=== PATIENT | male | born 1955 | race Caucasian/White ===

== ENCOUNTER 2018-11-30 07:03 | Inpatient (IN) | payer OTHER ==
[2018-11-30] VITALS (12 sets, daily range): BP systolic 108–137; BP diastolic 63–77
[~2018-11-30] VITALS: Ht 180.3 cm; Wt 64.9 kg
[~2018-11-30 07:03] MED LIST: NKM; ceFAZolin sod 1 GM in NS 55 ML IVPB ONE
[2018-11-30] MEDS ORDERED: Thrombin 5000 units TOPIC ONE ×2 (07:10→09:58)
[2018-11-30] MEDS ORDERED: Bupivacaine w/Epi 0.5% 30ml Vial INJ ONE ×2 (07:10→09:59)
[2018-11-30] MEDS ORDERED: Bacitracin 50000 Units Vial ONE (07:10)
[2018-11-30] MEDS ORDERED: Gelfoam Size TOPIC ONE ×2 (07:10→09:59)
[2018-11-30] MEDS ORDERED: LR 1000ml ONE (08:30)
[2018-11-30] MEDS ORDERED: Lidocaine 1% MPF 10mg/ml 5ml ONE (08:41)
[2018-11-30] MEDS ORDERED: Morphine Sulfate 10mg/ml Inj ONE (08:41)
[2018-11-30] MEDS ORDERED: Propofol 200mg/20ml IV ONE (08:41)
[2018-11-30] MEDS ORDERED: LR 1000ml 1,000 ML IVLG SCH (09:29)
--- NOTE | 2018-11-30 09:29 | Anethesia Preoperative Eval ---
Anesthesia Pre-op PMH/ROS General Date of Evaluation: Nov 30, 2018 Anesthesiologist: Morris ASA Score: ASA 1 Mallampati Score Class I : Soft palate, uvula, fauces, pillars visible Class II: Soft palate, uvula, fauces visible Class III: Soft palate, base of uvula visible Class IV: Only hard plate visible Mallampati Classification: Class II Surgeon: Richi Diagnosis: lumbar radiculopathy Surgical Procedure: bilateral L3-4 and right L4-5 laminectomy and discectomy Anesthesia History: none Family History: no anesthesia problems Allergies: Coded Allergies: No Known Allergies (Unverified , 11/30/18) Patient NPO?: Yes NPO Date: Nov 29, 2018 NPO Time: 2100 Past Medical History Cardiovascular: Denies: HTN, CAD, [place], valve dz, arrhythmia, other Pulmonary: Denies: asthma, COPD, CATALINA, other Gastrointestinal/Genitourinary: Denies: GERD, CRI, ESRD, other Neurologic/Psychiatric: Denies: dementia, CVA, depression/anxiety, TIA, other Endocrine: Denies: DM, hypothyroidism, steroids, other HEENT: Denies: cataract (L), cataract (R), glaucoma, [place] (L), [place] (R), other Hematology/Immune: Denies: anemia, DVT, bleeding disorder, other Musculoskeletal/Integumentary: Denies: OA, RA, DJD, DDD, edema, other PSxH Narrative: lumbar lami, nose sx Anesthesia Pre-op Phys. Exam Physician Exam Last Vital Signs Date Time Temp Pulse Resp B/P (MAP) Pulse Ox O2 Delivery O2 Flow Rate FiO2 11/30/18 07:44 Room Air 11/30/18 07:43 98.2 91 20 137/77 (97) 99 Constitutional: NAD Cardiovascular: RRR Respiratory: CTA Airway Exam Mallampati Score: Class I MO: full ROM: full Teeth: intact Anesthesia Pre-op A/P Labs see chart Studies Pre-op Studies: EKG - sr Risk Assessment & Plan Assessment: ASA I Plan: GA Status Change Before Surgery: No Pre-Antibiotics Drug: Ancef 2g Given Within 1 Hr of Incision: Yes Apple Maki MD Nov 30, 2018 09:29
[2018-11-30] MEDS ORDERED: Metoclopramide 10mg/2ml Inj IVP PRN ×2 (09:30→11:15)
[2018-11-30] MEDS ORDERED: LORazepam Inj 2mg/ml 1ml IV PRN (09:30)
[2018-11-30] MEDS ORDERED: DiphenhydrAMINE 50mg/ml Inj IVP PRN (09:30)
[2018-11-30] MEDS ORDERED: Hydromorphone 0.5mg/0.5ml inj IVP PRN (09:30)
[2018-11-30] MEDS ORDERED: Midazolam 2mg/2ml Inj IVP PRN (09:30)
[2018-11-30] MEDS ORDERED: fentaNYL 100 mcg/2 mL IV PRN (09:30)
[2018-11-30] MEDS ORDERED: Midazolam 2mg/2ml Inj ONE (09:32)
[2018-11-30] MEDS ORDERED: Bacitracin 50000 Units Vial IRRIG ONE (09:58)
[2018-11-30] MEDS ORDERED: NS Irrig 1000ml IRRIG ONE (09:58)
[2018-11-30] MEDS ORDERED: Vancomycin 1gm vial IVPB ONE ×2 (10:32→10:50)
[2018-11-30] MEDS ORDERED: fentaNYL 100 mcg/2 mL IV ONE (10:40)
[2018-11-30] MEDS ORDERED: Milk of Magnesia 30ml Ud ORAL PRN (11:15)
--- NOTE | 2018-11-30 11:17 | Brief Operative Note ---
Immediate Post Operative Note Operative Note Pre-op Diagnosis: l345 HNP Procedure: L34 B laminotomy, R l34 discectomy, R L45 laminotomy Post-op Diagnosis: same as pre-op Findings: consistent w/pre-op dx studies Surgeon: lizeth Vault Cashier: pradip anders Anesthesiologist: rubens Anesthesia: general Specimen: none Complications: none Condition: stable Fluids: 1200 Estimated Blood Loss: minimal Drains: hemovac Implant(s) used?: Jabari Auguste MD Nov 30, 2018 11:17
--- NOTE | 2018-11-30 11:18 | Pre-Procedure Note/Attestation ---
Pre-Procedure Note/Attestation Complete Prior to Procedure Procedure Narrative: L345 lami/discectomy Indications for Procedure Pre-Operative Diagnosis: l345 HNP Attestation I attest that I discussed the nature of the procedure; its benefits; risks and complications; and alternatives (and the risks and benefits of such alternatives ), prior to the procedure, with the patient (or the patient's legal textiles sales representative). I attest that, if there was a reasonable possibility of needing a blood transfusion, the patient (or the patient's legal textiles sales representative) was given the [facility] standardized written summary, pursuant to the [place] Blood Safety Act ([place] Health and Safety Code # 1645, as amended). I attest that I re-evaluated the patient just prior to the surgery and that there has been no change in the patient's H&P, except as documented below: Jabari Stoddard MD Nov 30, 2018 11:18
--- NOTE | 2018-11-30 11:36 | Immediate Post-Op Evaluation ---
Immediate Post-Op Evalulation Immediate Post-Op Evalulation Procedure: L3-4, L4-5 laminectomy and discectomy Date of Evaluation: Nov 30, 2018 Time of Evaluation: 11:37 IV Fluids: 1.2L Blood Products: 0 Estimated Blood Loss: 50 Urinary Output: 0 Blood Pressure Systolic: 108 Blood Pressure Diastolic: 63 Pulse Rate: 74 Respiratory Rate: 16 O2 Sat by Pulse Oximetry: 100 Temperature (Fahrenheit): 99.1 Pain Score (1-10): 0 Nausea: No Vomiting: No Complications 0 Patient Status: awake, reacts, patent, none Hydration Status: adequate Drug: Ancef 2g Given Within 1 Hr of Incision: Yes Time Given: 08:45 Apple Maki MD Nov 30, 2018 11:36
--- NOTE | 2018-11-30 13:02 | Diagnostic Imaging Report ---
Indication: Intraoperative imaging Comparison: None Findings: Single crosstable lateral view of the lumbar spine showing instrument posterior to L4-5. IMPRESSION: Intraoperative imaging
--- NOTE | 2018-11-30 15:00 | Operative Note - Dictated ---
DATE OF OPERATION: 11/30/2018 SURGEON: Jabari Stoddard M.D. PREOPERATIVE DIAGNOSES: 1. Status post prior lumbar laminectomy with extruded disk herniation L3-L4 large and central. 2. L4-L5 right-sided recurrent disc herniation. 3. Radiculopathy. PROCEDURES: 1. Redo laminectomy bilateral L3 and L4 as well as right side L4 and L5. 2. Diskectomy right-sided approach L3-L4. 3. Lysis of adhesions/neurolysis L4-L5 right side. 4. Dissection through altered and scarred anatomy. 5. Use of fluoroscopy for localization. 6. Use of operating microscope. ESTIMATED BLOOD LOSS: Less than 100. FLUIDS: 1200. COMPLICATIONS: None. INDICATIONS: The patient is a very pleasant gentleman who has previously undergone lumbar laminectomy, microdiskectomy. He re-injured his back with a large disk extrusion centrally little bit more towards the right than the left at L3-L4 resulting in severe stenosis acquired an acute as well as L4-L5 right-sided disc herniation. Pros, cons, risks, and benefits of surgery were discussed. Due to the exceedingly large nature of the disc herniation, surgical intervention was recommended. RISKS NOTE: The patient was explained in detail risks, benefits of surgery to include, but not be limited to those of bleeding, infection, damage to nerves, vessels, tendons, anesthetic reaction, aspiration, and possibly . The patient understood and wished to proceed. OPERATIVE PROCEDURE IN DETAIL: The patient was taken to the operative suite. After general endotracheal anesthesia was obtained, he was turned prone onto a radiolucent table/Jerome frame. The back was then prepped and draped in usual sterile fashion. The previous incision was marked out. At this point, the skin was infiltrated with Marcaine with epinephrine. Incision was made from L3 through L5 after needles were placed marking the appropriate levels. At this point, subperiosteal dissection was carried out. Extensive scar tissue was encountered and dissection through the altered and scarred anatomy was required. Leading edge of a lamina was identified and this was identified to be the L4 level. At this point, dissection was carried down more proximally. Care being taken to avoid injury to the facet joints bilaterally. Due to the large nature of disk herniation at L3-L4, it was elected to perform bilateral laminal foraminotomies so as to avoid nerve traction/compression injury when mobilizing the nerve for diskectomy from the right side. Therefore, a hemilaminectomy was performed under microscopic visualization removing the leading edge of the lamina of L3 and superior edge lamina of L4. Ligamentum flavum was removed in a piecemeal fashion. Medial facetectomy was performed. Neuroforamen was probed free. Copious irrigation was performed. FloSeal was applied. At this point, attention was turned to the right side. In an identical fashion, hemilaminectomy was performed at L3 and L4. The dural sac was then gently retracted medially. A large extruded fragment was felt below the posterior longitudinal ligament. The PLL was incised and was noted to be markedly hypertrophied due to chronic inflammatory change. Extruded disc fragments were then identified from a more central approach under the ligamentum flavum. A large probe was passed into the pocket where the disk extrusion was and any and all loose disk fragments were removed. Copious irrigation was performed. The PLL was bipolar so as to thin its hypertrophied profile. At this juncture, FloSeal was applied. Attention was turned to the L4-L5 level. In an identical fashion, hemilaminectomy was performed of the L3 and leading edge superior portion of L5. The nerve root was gently retracted medially. There was noted to be extensive scarring of the L4/L5 complex. This was retracted gently medially. Bipolar was used to thin out the disk extrusion and incision through the PLL was made and the loose disk fragments were evacuated. Bipolar micro scissors and micro rotund instruments were required to perform neurolysis at L4-L5. Copious irrigation was performed. Once satisfied with the decompression and the diskectomy, decision was made to close. Valsalva demonstrated no CSF leakage. At this point, the decision was made to close. Medium-sized Hemovac drain was placed deep to the fascia. Fascia was repaired using #1 Vicryl. Subcutaneous closure using 2-0 Vicryl. Dermabond and Tegaderm dressing was applied. The patient was then turned onto his back, awakened, extubated, and transferred to recovery room in stable condition. Complications none. Jabari Stoddard M.D. DR: MARIA R JOB#: [id number] CC:
[2018-11-30] MEDS: D5 1/2NS 1,000 ML IV SCH ×2 (15:36→23:56)
[2018-11-30] MEDS: Docusate 100mg cap ORAL SCH (17:04)
[2018-11-30] MEDS: ceFAZolin sod 1 GM in D5W 55 ML IV SCH ×2 (17:04→23:56)
[2018-11-30] MEDS ORDERED: Tamsulosin 0.4mg cap ORAL SCH (17:45)
[2018-11-30] MEDS ORDERED: Bethanechol 25mg Tab ORAL SCH (17:46)
[2018-11-30] MEDS ORDERED: Morphine Sulfate 4mg/ml Inj (IV/IM USE ONLY) IM PRN ×2 (18:30→19:00)
[2018-11-30] MEDS ORDERED: Chloraseptic Spray 20mL Bottle ORAL PRN (18:30)
[2018-11-30] MEDS ORDERED: Tylenol #3 tab (300mg/30mg) ORAL PRN (18:45)
--- NOTE | 2018-11-30 20:45 | Consultation ---
DATE OF CONSULTATION: 11/30/2018 CONSULTING PHYSICIAN: Niles Saunders M.D. REFERRING PHYSICIAN: Jabari Stoddard M.D. REASON FOR CONSULTATION: Acute pain consult. HISTORY OF PRESENT ILLNESS: Dear Dr. Jabari Stoddard, Thank you kindly for consulting me to evaluate and render an opinion as to how to proceed in the management of the patient's acute postoperative lumbar spine pain after his lumbar spine multiple level surgery today. The patient is a very pleasant 63-year-old gentleman, who injured his lumbar spine after a work-related injury. On your request, I saw the patient for acute pain consultation. I saw the patient at the bedside with the nurse RN, Onelia. I discussed the case with yourself, Dr. Stoddard, along with the recovery room nurse, GALLITO Strauss. I performed a detailed history and physical examination. I spent over 75 minutes in consultation with an additional 30 minutes in medical record review. Multiple records were reviewed including utilization review and surgical authorization by [facility] [email or web address] [facility] [employer]. Utilization reviewed dated 10/29/2018 authorizing multiple level lumbar spine surgery as certified with hospitalization at [facility]. Further record review include preoperative history and physical by Dr. Tyler Chavez on 11/23/2018 along with diagnostic testing, laboratory studies, 12-lead EKG, and chest x-ray. Further record review include primary treating physician's progress report by Dr. Jabari Stoddard on 10/13/2018. Multiple records were reviewed from today's date of surgery at [facility] dated 11/30/2018 including consent for surgical treatment, consent for anesthesia, consent for blood products, medication administration record, medication reconciliation order form, PACU record, PACU orders, anesthesia record, pre and post anesthesia evaluation record, postoperative spine surgery orders, postoperative surgery report by Dr. Jabari Stoddard, guidelines for prophylactic antibiotics, guidelines for DVT prophylaxis, surgical invasive procedure check list, 24-hour medical surgical flow sheet, initial nursing assessment, and output record. PAST MEDICAL HISTORY: 1. Acute postoperative lumbar spine pain, status post multiple level lumbar spine surgery by Dr. Jabari Stoddard in November 2018. 2. Work-related injury. 3. Postoperative urinary retention. PAST SURGICAL HISTORY: Previous lumbar spine surgery in 1990 and nasal polyp surgery in 1974. MEDICATIONS AT HOME: P.r.n. NSAIDs. ALLERGIES: No known drug allergies. FAMILY HISTORY: Longevity, both parents near 80 years old. SOCIAL HISTORY: The patient lives alone. He denies tobacco, marijuana, or alcohol usage. REVIEW OF SYSTEMS: Per Dr. Tyler Chavez. PHYSICAL EXAMINATION: GENERAL: Age 63, height 5 feet 11 inches, weight 147 pounds, and body mass index 21. In general, this is a 63-year-old gentleman, who appears younger than his stated age. Alert and oriented x3. Moving all extremities x4. A 5/5 dorsiflexion and 5/5 plantar flexion in bilateral lower extremities. VITAL SIGNS: Afebrile, pulse 81, respirations 20, blood pressure 123/68, and oxygen saturation 100% on room air. HEENT: Normocephalic and atraumatic. Extraocular muscles intact. Pupils are equal, round, and accommodative. No Rothman's palsy. No Melissa syndrome. No nuchal rigidity appreciated. No carotid bruits. CHEST: Clear to auscultation. HEART: Regular rate and rhythm. ABDOMEN: Soft. BACK: Lumbar spine with Hemovac drain holding suction. Painful by incision area with minimal paraspinal muscle spasms appreciated. NEUROLOGIC: Detailed neurologic exam and straight leg raising deferred to Dr. Jabari Stoddard, Surgery. LABORATORY STUDIES: Labs from 11/23/2018 shows glucose 114, sodium 142, potassium 4.0, chloride 104, bicarb 27, BUN 18, and creatinine 1.1. Calcium 9.5. Total protein 7.2. Albumin 4.5. AST 14, ALT 20, and alkaline phosphatase 73. Total bilirubin 2.0. Glycosylated hemoglobin normal. White count 5, hematocrit 48, and platelets 215,000. INR 1.1. PTT 31. Preoperative 12-lead EKG shows heart rate 76, premature ventricular contractions, normal sinus rhythm. Preoperative chest x-ray shows no acute cardiopulmonary disease. IMPRESSION: 1. Acute postoperative lumbar spine pain, status post multiple level lumbar spine surgery by Dr. Jabari Stoddard in November 2018. 2. Work-related injury. 3. Postoperative urinary retention. TREATMENT RECOMMENDATIONS: I have devised the following analgesic plan to help with this patient's pain control. I reviewed the anesthesia record. It shows that he did tolerate morphine without any adverse side effects, so I have added 3 mg intramuscular morphine every three hours p.r.n. for severe pain complaints. The patient is fairly narcotic-naive. He believes he has used codeine after dental procedures in the past. So, I have ordered Tylenol No. 3 With Codeine orally 1 tablet every 4 hours p.r.n. for mild pain. The patient does not appear to be anxious, so I would avoid the class of benzodiazepines at this time, and concentrate on MU-opioid agonist agents for primary analgesia. If spasm becomes a big issue, we would consider using muscle relaxants. The patient is having urinary retention problems. He believes he has had similar episodes in the past. I have contacted the pharmacy and emergently added doses of Flomax and Urecholine. We will see if these medications allow the patient to void urine with standing. Otherwise, I would recommend placing a Gallagher catheter to avoid further continuous ureteral irritation with multiple in and out straight catheterizations. Certainly, Dr. Stoddard will be notified as well if this urinary retention issue persists. In case of any sore throat complaints, I have ordered Chloraseptic spray to the bedside. I will empirically place the patient on Pepcid b.i.d. for GI ulcer prophylaxis and I have also ordered a p.r.n. dose of Mylanta 30 mL q.6 hours in case of any GERD symptom exacerbation. I have ordered two different antiemetics starting with Zofran 4 mg intravenously every four hours p.r.n. as a first-line agent with Phenergan 12.5 mg intramuscularly every 8 hours as a second-line agent. I have ordered Benadryl 25 mg orally every 6 hours in case of any itching complaints. I will defer DVT prophylaxis to the surgeon. I have ordered incentive spirometer to encourage good pulmonary toilet and help to reduce the risk of postoperative pneumonia and atelectasis. We will see how the patient advances with physical therapy tomorrow, and also monitor the drainage from his indwelling Hemovac drain. Niles Saunders M.D. DR: GAVIN JOB#: [id number] CC:
[2018-11-30] MEDS: Bethanechol 25mg Tab ORAL SCH (21:46)
[2018-12-01] VITALS: BP 113/62
[2018-12-01 04:00] VITALS: BP 95/65
[2018-12-01] MEDS: Bethanechol 25mg Tab ORAL SCH ×2 (05:46→14:14)
[2018-12-01 07:59] VITALS: BP 69/65
--- NOTE | 2018-12-01 08:32 | Orthopedic Spine Progress Note ---
Ortho Spine - Progress Note Subjective Symptoms: c/o post-op back pain, improved Objective Vital Signs: Last 24 Hour Vital Signs Date Time Temp Pulse Resp B/P (MAP) Pulse Ox O2 Delivery O2 Flow Rate FiO2 12/01/18 07:59 98.1 80 20 69/65 (66) 100 12/01/18 04:00 97.9 68 18 95/65 (75) 100 12/01/18 00:00 97.8 64 17 113/62 (79) 100 11/30/18 21:00 Room Air 11/30/18 20:00 98.1 75 18 123/63 (83) 100 11/30/18 16:00 98.9 81 20 123/68 (86) 100 11/30/18 14:35 Room Air 11/30/18 14:30 97.9 82 20 124/71 (88) 99 11/30/18 13:30 97.6 74 20 119/63 (81) 98 11/30/18 13:00 98.4 70 20 121/66 (84) 100 11/30/18 12:30 97.8 81 18 127/73 100 Nasal Cannula 3 11/30/18 12:15 79 15 112/72 100 Nasal Cannula 3 11/30/18 12:00 82 17 119/74 100 Nasal Cannula 3 11/30/18 11:50 76 15 114/71 100 Simple Mask 6 11/30/18 11:40 77 20 114/70 100 Simple Mask 6 11/30/18 11:36 74 16 100 11/30/18 11:32 99.0 74 16 108/63 100 Simple Mask 6 I&O: Intake and Output 11/30/18 12/01/18 19:00 07:00 Intake Total 936 ml 1620 ml Output Total 20 ml 1775 ml Balance 916 ml -155 ml Intake Oral 536 ml 420 ml IV Total 100 ml 1200 ml Other 300 ml Output Urine Total 1700 ml Drainage Total 10 ml 75 ml Estimated Blood Loss 10 ml # Voids 1 Wound: clean, intact Drains: hemovac Neuro Status: stable Assessment Procedure Performed: L34 B laminotomy, R l34 discectomy, R L45 laminotomy Plan Plan: PT, pain management, continue drain, discharge plan Jabari Stoddard MD Dec 01, 2018 08:32
[2018-12-01] MEDS: ceFAZolin sod 1 GM in D5W 55 ML IV SCH (09:05)
[2018-12-01] MEDS: D5 1/2NS 1,000 ML IV SCH (09:05)
[2018-12-01] MEDS: Docusate 100mg cap ORAL SCH ×2 (09:05→17:26)
[2018-12-01 12:00] VITALS: BP 124/66
[2018-12-01] MEDS ORDERED: D5 1/2NS 1000ml IV ONE (15:24)
[2018-12-01 16:00] VITALS: BP 115/67
[2018-12-01 20:00] VITALS: BP 144/71
[2018-12-01] MEDS ORDERED: Tamsulosin 0.4mg cap ORAL SCH (21:00)
--- NOTE | 2018-12-01 21:00 | Progress Note ---
DATE: 12/01/2018 ACUTE PAIN MANAGEMENT PHYSICIAN PROGRESS NOTE MEDICATIONS: Medication administration record reviewed. Medications include IV fluids, Colace, Flomax, Pepcid, urecholine, Restoril, Tylenol, milk of magnesia, Catapres, Benadryl, Mylanta, Phenergan, Zofran, Chloraseptic spray, morphine, and Tylenol No. 3 with Codeine. LABORATORY STUDIES: No interval laboratory studies. I saw the patient at bedside. I discussed the case with the surgeon, Dr. Jabari Stoddard along with the day nurse RN, Thea and the charge nurse, RN, Ariadne. The patient has been ambulating well. His Hemovac drain last night put out [address] Ware evaluated the patient earlier in the morning, the surgeon, Dr. Ware wants the patient to continue in the hospital to monitor further lumbar spine drain output. During today's day shift, there is output decreased to 20 mL. The patient has been voiding urine without any difficulties after the urecholine with Flomax yesterday. I will discontinue these medications. The patient has been moving in and out of bed with physical therapy training without difficulties. He has been tolerating advancing diet without any nausea symptoms. His current analgesic regimen seems adequate. I did leave a prescription for Tylenol No. 3 with Codeine for outpatient usage. The patient is alert and ordered x3. Denies any shortness of breath or chest pain. I had the patient move to the right lateral decubitus position, so that I could examine the lumbar spine dressing. I removed the surgical dressing, which revealed the incision line clean and dry with Durabond sealant intact. The drain site appeared clean and dry as well. There was no evidence for erythema or exudate. With the Hemovac drain taken off of suction, end-expiration, I personally removed the indwelling lumbar spine drain catheter. The tip was intact. Alcohol swabbing was applied generously to the drain hole site, along with alcohol swabbing over the incision line. A 6 x 6 island sterile border gauze dressings were then applied over the drain hole site and the incision line, without any complications. Niles Saunders M.D. DR: NANI JOB#: [id number] CC:
[2018-12-02] VITALS: BP 128/77
[2018-12-02 04:00] VITALS: BP 123/70
[2018-12-02 08:00] VITALS: BP 106/64
[2018-12-02] MEDS: Docusate 100mg cap ORAL SCH (08:18)
--- NOTE | 2018-12-02 08:35 | Orthopedic Spine Progress Note ---
Ortho Spine - Progress Note Subjective Symptoms: c/o post-op back pain, improved - as compared to pre-op Objective Vital Signs: Last 24 Hour Vital Signs Date Time Temp Pulse Resp B/P (MAP) Pulse Ox O2 Delivery O2 Flow Rate FiO2 12/02/18 04:00 97.7 70 20 123/70 (87) 100 12/02/18 00:00 97.2 77 20 128/77 (94) 100 12/01/18 21:00 Room Air 12/01/18 20:00 98.8 88 20 144/71 (95) 100 12/01/18 16:00 98.7 72 20 115/67 (83) 100 12/01/18 12:00 98.3 69 20 124/66 (85) 100 12/01/18 09:00 Room Air I&O: Intake and Output 12/01/18 12/02/18 19:00 07:00 Intake Total 720 ml Output Total 20 ml 700 ml Balance -20 ml 20 ml Intake Oral 720 ml Output Urine Total 700 ml Drainage Total 20 ml # Voids 2 Wound: clean, intact Drains: none Neuro Status: stable Assessment Procedure Performed: L34 B laminotomy, R l34 discectomy, R L45 laminotomy Plan Plan: PT, discharge to home Jabari Stoddard MD Dec 02, 2018 08:35
--- NOTE | 2018-12-02 09:23 | 48 Hour Post Anesthesia Eval ---
Post Anesthesia Evaluation Procedure: L3-4, L4-5 laminectomy and discectomy Date of Evaluation: Dec 01, 2018 Time of Evaluation: 07:00 Airway: patent Nausea: No Vomiting: No Pain Intensity: 0 Hydration Status: adequate Cardiopulmonary Status: at baseline Mental Status/LOC: patient returned to baseline Post-Anesthesia Complications: 0 Follow-up care needed: ready to discharge Apple Maki MD Dec 02, 2018 09:23
[2018-12-02] MEDS ORDERED: ACETAMINOPHEN-1 EAC1 ORAL (11:26)
[2018-12-02 12:00] VITALS: BP 118/71
--- NOTE | 2018-12-03 12:15 | Discharge Summary ---
Discharge Summary Discharge Summary _ DATE OF ADMISSION: 11/30/2018 DATE OF DISCHARGE: 12/02/2018 DISCHARGED BY: Dr. Jabari Stoddard SURGEON: Dr. Jabari Stoddard RADIOLOGY TRANSPORTER: Dr. Niles Saunders BRIEF HOSPITAL COURSE: Patient is a 63-year-old male, who injured his lumbar spine after work-related injury. He reinjured his back with a large disc extrusion centrally a little bit more towards the right than the left at L3-L4, resulting in severe stenosis as well as L4-L5 right-sided disc herniation. Due to exceedingly large nature of the disc herniation, surgical intervention was recommended. He was admitted on 11/30/2018 and underwent a redo laminectomy and bilateral L3 and L4 as well as right side L4 and L5; and right L4-L5 laminotomy. He tolerated procedure well. Surgery was uneventful. Post-operatively, patient was admitted for post- op care. He was placed on SCDs for DVT prophylaxis and was encouraged use of incentive spirometer. He was seen by chest pain coordinator. Patient was given pain management. He had urinary retention problems in the past. He was given Flomax and Urecholine. He was given GI and GERD prophylaxis. Hemovac drain output was monitored. He was seen by PT. Diet was advanced. He was voiding well without any difficulties. Flomax and Urecholine were discontinued. Incision was clean, dry and intact. Indwelling lumbar spine drain catheter was removed. Tip was intact. Patient was ambulating well with good pain control and was tolerating diet. Patient was eventually cleared for discharge home. PREOPERATIVE DIAGNOSES: 1. Status post prior lumbar laminectomy with extruded disk herniation L3-L4 large and central. 2. L4-L5 right-sided recurrent disc herniation. 3. Radiculopathy. PROCEDURES: 1. Redo laminectomy bilateral L3 and L4 as well as right side L4 and L5. 2. Diskectomy right-sided approach L3-L4. 3. Lysis of adhesions/neurolysis L4-L5 right side. 4. Dissection through altered and scarred anatomy. 5. Use of fluoroscopy for localization. 6. Use of operating microscope. (Refer to Operative Report) DISCHARGE DISPOSITION: Patient was discharged home. DISHARGE MEDICATIONS: Refer to Medication Reconciliation Sheet. DISCHARGE INSTRUCTIONS: Post-op instructions given. Follow-up in a week. I have been assigned to complete a DC summary on this account, I was not involved with the patient's management. Pinky Rowland NP Dec 03, 2018 12:15
== END 2018-12-02 13:35 | disposition home or self-care (01) | DRG 520 ==
LOC: SDSOVERFLO 07:03 → 3E 13:00
PROC: 0ST20ZZ Resection of Lumbar Vertebral Disc, Open Approach (ICD-10-PCS; principal; 2018-11-30 08:30)
PROC: 01NB0ZZ Release Lumbar Nerve, Open Approach (ICD-10-PCS; principal; 2018-11-30 08:30)
DX: M51.16 Intervertebral disc disorders with radiculopathy, lumbar region (principal); G89.18 Other acute postprocedural pain; R33.8 Other retention of urine; M48.061 Spinal stenosis, lumbar region without neurogenic claudication
CPT/HCPCS: 36415; 72020; 76000; 86850; 86900; 86901; 87081; 94003; 94150; J2250; J2765